=== PATIENT | female | born 1935 | race Caucasian/White ===

== ENCOUNTER 2023-07-16 17:29 | Inpatient (IN) | payer BC ==
[~2023-07-16] VITALS: Ht 157.5 cm; Wt 58.5 kg
[2023-07-16 17:41] VITALS: BP_SYST 132; PULSE 85; RESP 18; TEMP 98.3; O2SAT 98
[2023-07-16] MEDS ORDERED: iohexoL 350 mgI/mL, 100 ML INFUS..BTL IV ONE (17:52)
[2023-07-16 18:41] LABS: BASOPHILS % (AUTO) 0.2 % (0.0-2.0); EOSINOPHILS % (AUTO) 0.4 % (0.0-4.0); HEMATOCRIT 29.8 % (36-48); HEMOGLOBIN 10.4 g/dL (12.0-16.0); LYMPHOCYTES % (AUTO) 11.5 % (20.5-51.5); MEAN CORPUSCULAR HEMOGLOBIN 30 pg (27-31); MEAN CORPUSCULAR HGB CONC 35 % (32-36); MEAN CORPUSCULAR VOLUME 87 fL (79.0-98.0); MONOCYTES # (AUTO) 0.7 K/uL (0.0-1.0); MONOCYTES % (AUTO) 7.4 % (1.7-9.3); NEUTROPHILS # (AUTO) 7.4 K/uL (1.8-7.7); NEUTROPHILS % (AUTO) 80.5 % (40.0-70.0); PLATELET COUNT (AUTO) 249 K/uL (130-430); RED BLOOD CELL COUNT(AUTO) 3.44 MIL/uL (4.2-6.2); RED CELL DISTRIBUTION WIDTH 14.8 % (9.0-15.0); WHITE BLOOD COUNT (AUTO) 9.1 K/uL (4.8-10.8)
[2023-07-16 19:21] LABS: INR 1.1 (0.8-1.2); PROTHROMBIN TIME 11.8 SECS (9.5-12.5)
[2023-07-16 19:26] LABS: ANION GAP 6 (5-15); CALCIUM 8.1 mg/dL (8.4-11.0); CARBON DIOXIDE 27 mmol/L (23-29); CHLORIDE 97 mmol/L (98-107); CREATININE 0.95 mg/dL (0.55-1.30); GLUCOSE 106 mg/dL (74-106); POTASSIUM 4.1 mmol/L (3.5-5.1); SODIUM SERUM 130 mmol/L (136-145); UREA NITROGEN, BLOOD 22 mg/dL (8-21)
[2023-07-16 19:47] LABS: BILIRUBIN,URINE NEGATIVE (NEGATIVE); BLOOD, URINE 3+ (NEGATIVE); COLOR,URINE YELLOW (YELLOW); GLUCOSE,URINE NEGATIVE (NEGATIVE); KETONES,URINE NEGATIVE (NEGATIVE); LEUKOCYTE ESTERASE ,URINE 3+ (NEGATIVE); NITRITE, URINE POSITIVE (NEGATIVE); PROTEIN URINE TRACE (NEGATIVE); UROBILINOGEN,URINE 0.2 (0.2-1.0)
[2023-07-16] MEDS: NACL 0.9% 1,000 ML IV ONE (19:58)
[2023-07-16 20:00] LABS: CHOLESTEROL 142 mg/dL (<200); HDL CHOLESTEROL 61 mg/dL (>55); TRIGLYCERIDES 40 mg/dL (30-150)
[2023-07-16 20:01] LABS: CLARITY/URINE HAZY (CLEAR)
[2023-07-16 20:01] LABS: HEMOGLOBIN A1C 5.7 % (<5.7)
[2023-07-16 20:06] LABS: BACTERIA,URINE MANY /HPF (None Seen); MUCUS,URINE None Seen /LPF (None Seen); WBC,URINE 50-80 /HPF (0-3)
[2023-07-16] MEDS ORDERED: cefTRIAXone 1 GM VIAL ONE (21:14)
[2023-07-16] MEDS ORDERED: ZOLPIDEM TARTRATE 5 MG TABLET PO PRN (21:45)
[2023-07-16] MEDS ORDERED: MUPIROCIN 2% TOPICAL OINTMENT 22 GM NS PRN (21:45)
[2023-07-16] MEDS ORDERED: ONDANSETRON HCL 4 MG/2 ML VIAL IVP PRN (21:45)
[2023-07-16] MEDS ORDERED: LORazepam 2 MG/ML VIAL IVP PRN (21:45)
[2023-07-16] MEDS ORDERED: DOCUSATE SODIUM 100 MG CAPSULE PO PRN (21:45)
[2023-07-16] MEDS: cefTRIAXone 1 GM in D5W 50 ML IV SCH (21:45)
[2023-07-16] MEDS ORDERED: MORPHINE 2 MG/ML INJ. SYRINGE IVP PRN ×2 (21:45)
[2023-07-16] MEDS ORDERED: MAGNESIUM SULFATE 50 ML IV PRN (21:45)
[2023-07-16] MEDS ORDERED: POTASSIUM CHLORIDE 20 MEQ TABLET.ER PO PRN (21:45)
[2023-07-16] MEDS: cefTRIAXone 1 GM in D5W 50 ML IV ONE (21:58)
[2023-07-16] MEDS: ACETAMINOPHEN 500 MG TABLET PO ONE (21:58)
[2023-07-17] VITALS (7 sets, daily range): BP systolic 95–126; PULSE 60–77; RESP 18; TEMP 96.7–100.1; O2SAT 96–98
[2023-07-17] MEDS ORDERED: CITA10SO PO (00:19)
[2023-07-17] MEDS ORDERED: LOSA-412 PO (00:19)
[2023-07-17] MEDS: NACL 0.9% 1,000 ML IV SCH (02:21)
[2023-07-17 04:02] LABS: BASOPHILS % (AUTO) 0.2 % (0.0-2.0); EOSINOPHILS % (AUTO) 0.1 % (0.0-4.0); HEMATOCRIT 28.9 % (36-48); HEMOGLOBIN 9.7 g/dL (12.0-16.0); LYMPHOCYTES # (AUTO) 0.6 K/uL (1.0-5.5); LYMPHOCYTES % (AUTO) 6.7 % (20.5-51.5); MEAN CORPUSCULAR HEMOGLOBIN 30 pg (27-31); MEAN CORPUSCULAR HGB CONC 34 % (32-36); MEAN CORPUSCULAR VOLUME 88 fL (79.0-98.0); MONOCYTES # (AUTO) 0.7 K/uL (0.0-1.0); MONOCYTES % (AUTO) 7.4 % (1.7-9.3); NEUTROPHILS # (AUTO) 8.2 K/uL (1.8-7.7); NEUTROPHILS % (AUTO) 85.6 % (40.0-70.0); PLATELET COUNT (AUTO) 219 K/uL (130-430); RED BLOOD CELL COUNT(AUTO) 3.31 MIL/uL (4.2-6.2); RED CELL DISTRIBUTION WIDTH 14.6 % (9.0-15.0); WHITE BLOOD COUNT (AUTO) 9.5 K/uL (4.8-10.8)
[2023-07-17 04:19] LABS: ANION GAP 11 (5-15); CALCIUM 7.9 mg/dL (8.4-11.0); CARBON DIOXIDE 24 mmol/L (23-29); CHLORIDE 105 mmol/L (98-107); CREATININE 0.86 mg/dL (0.55-1.30); GLUCOSE 124 mg/dL (74-106); POTASSIUM 3.7 mmol/L (3.5-5.1); SODIUM SERUM 140 mmol/L (136-145); UREA NITROGEN, BLOOD 17 mg/dL (8-21)
[2023-07-17] MEDS ORDERED: CITA20TA16 PO (06:53)
[2023-07-17] MEDS ORDERED: LOSA-413 PO (06:57)
[2023-07-17] MEDS: HEPARIN SODIUM,PORCINE 5,000 UNITS/ML VIAL SUBCUT SCH (08:52)
[2023-07-17] MEDS: ATORVASTATIN 20 MG TABLET PO SCH (08:52)
[2023-07-17] MEDS ORDERED: ATORVASTATIN 20 MG TABLET PO SCH (09:00)
[2023-07-17] MEDS: cefTRIAXone 1 GM in D5W 50 ML IV SCH (09:56)
[2023-07-17] MEDS ORDERED: traZODone HCL 50 MG TABLET (DESYREL) PO PRN (13:00)
[2023-07-17] MEDS: ACETAMINOPHEN 325 MG TABLET PO PRN (14:18)
[2023-07-18] VITALS (7 sets, daily range): BP systolic 127–138; PULSE 56–62; RESP 15–18; TEMP 98–99.3; O2SAT 96–100
[2023-07-18 04:42] LABS: BASOPHILS % (AUTO) 0.4 % (0.0-2.0); EOSINOPHILS # (AUTO) 0.1 K/uL (0.0-0.4); EOSINOPHILS % (AUTO) 1.3 % (0.0-4.0); HEMOGLOBIN 9.1 g/dL (12.0-16.0); LYMPHOCYTES # (AUTO) 0.6 K/uL (1.0-5.5); LYMPHOCYTES % (AUTO) 11.6 % (20.5-51.5); MEAN CORPUSCULAR HEMOGLOBIN 30 pg (27-31); MEAN CORPUSCULAR HGB CONC 34 % (32-36); MEAN CORPUSCULAR VOLUME 88 fL (79.0-98.0); MONOCYTES # (AUTO) 0.4 K/uL (0.0-1.0); MONOCYTES % (AUTO) 7.3 % (1.7-9.3); NEUTROPHILS # (AUTO) 4.4 K/uL (1.8-7.7); NEUTROPHILS % (AUTO) 79.4 % (40.0-70.0); PLATELET COUNT (AUTO) 192 K/uL (130-430); RED BLOOD CELL COUNT(AUTO) 3.07 MIL/uL (4.2-6.2); RED CELL DISTRIBUTION WIDTH 14.6 % (9.0-15.0); WHITE BLOOD COUNT (AUTO) 5.5 K/uL (4.8-10.8)
[2023-07-18 05:21] LABS: ANION GAP 7 (5-15); CALCIUM 7.5 mg/dL (8.4-11.0); CARBON DIOXIDE 23 mmol/L (23-29); CHLORIDE 104 mmol/L (98-107); CREATININE 0.72 mg/dL (0.55-1.30); GLUCOSE 108 mg/dL (74-106); POTASSIUM 3.5 mmol/L (3.5-5.1); SODIUM SERUM 134 mmol/L (136-145); UREA NITROGEN, BLOOD 17 mg/dL (8-21)
[2023-07-18] MEDS: ASPIRIN 81 MG TAB.CHEW PO SCH (09:42)
[2023-07-19 01:43] VITALS: BP_SYST 134; PULSE 52; RESP 18; TEMP 98; O2SAT 99
[2023-07-19 04:34] LABS: BASOPHILS % (AUTO) 0.4 % (0.0-2.0); EOSINOPHILS # (AUTO) 0.2 K/uL (0.0-0.4); EOSINOPHILS % (AUTO) 4.4 % (0.0-4.0); HEMATOCRIT 26.9 % (36-48); HEMOGLOBIN 9.3 g/dL (12.0-16.0); LYMPHOCYTES # (AUTO) 1.2 K/uL (1.0-5.5); LYMPHOCYTES % (AUTO) 28.4 % (20.5-51.5); MEAN CORPUSCULAR HEMOGLOBIN 30 pg (27-31); MEAN CORPUSCULAR HGB CONC 35 % (32-36); MEAN CORPUSCULAR VOLUME 86 fL (79.0-98.0); MONOCYTES # (AUTO) 0.5 K/uL (0.0-1.0); MONOCYTES % (AUTO) 12.3 % (1.7-9.3); NEUTROPHILS # (AUTO) 2.3 K/uL (1.8-7.7); NEUTROPHILS % (AUTO) 54.5 % (40.0-70.0); PLATELET COUNT (AUTO) 229 K/uL (130-430); RED BLOOD CELL COUNT(AUTO) 3.13 MIL/uL (4.2-6.2); RED CELL DISTRIBUTION WIDTH 14.4 % (9.0-15.0); WHITE BLOOD COUNT (AUTO) 4.2 K/uL (4.8-10.8)
[2023-07-19 04:55] LABS: ANION GAP 11 (5-15); CALCIUM 8.3 mg/dL (8.4-11.0); CARBON DIOXIDE 24 mmol/L (23-29); CHLORIDE 107 mmol/L (98-107); CREATININE 0.71 mg/dL (0.55-1.30); GLUCOSE 105 mg/dL (74-106); SODIUM SERUM 142 mmol/L (136-145); UREA NITROGEN, BLOOD 17 mg/dL (8-21)
[2023-07-19 08:00] VITALS: O2SAT 97
[2023-07-19 08:17] VITALS: BP_SYST 125; PULSE 53; RESP 16; TEMP 97.9; O2SAT 97
[2023-07-19 12:47] VITALS: BP_SYST 128; PULSE 54; RESP 17; TEMP 98.1; O2SAT 98
[2023-07-19] MEDS ORDERED: CEPH-548 PO (12:51)
[2023-07-19] MEDS ORDERED: LIP20 PO (12:51)
[2023-07-19 13:38] VITALS: BP_SYST 128; PULSE 54; RESP 18; TEMP 98.1; O2SAT 98
== END 2023-07-19 15:20 | disposition home health service (06) | DRG 71 ==
LOC: SED 17:29 → STU 22:05 → SMU 07-19 00:16
PROVIDERS: ADMIT General Practice; ATTEND General Practice
DX: G93.41 Metabolic encephalopathy (principal); E87.1 Hypo-osmolality and hyponatremia; N39.0 Urinary tract infection, site not specified; I10 Essential (primary) hypertension; F32.A Depression, unspecified; R42 Dizziness and giddiness; B96.20 Unspecified Escherichia coli [E. coli] as the cause of diseases classified elsewhere
CPT/HCPCS: 36415; 70450; 70496; 70498; 71045; 71250-TC; 72170-TC; 80048; 80061; 81000; 81001; 81015; 82948; 83037; 83605; 83735; 84484; 85025; 85610; 85730; 86886; 86900; 86901; 87040; 87086; 87186; 93005; 93306; 96361; 96365; 97110-GP; 97112-GP; 97116-GP; 97530-GP; 99291; 99292; G0378; J0696; J1644; J7060; Q9967